=== PATIENT | male | born 1940 | race Caucasian/White ===

== ENCOUNTER 2017-04-26 11:50 | Inpatient (IN) | payer MEDICARE ==
[2017-04-26 12:37] LABS: Hematocrit 40 % (42-52); Hemoglobin 13.5 g/dl (14.0-18.0); Mean Corpuscular HGB Conc 34 g/dl (31-36); Mean Corpuscular Hemoglobin 33 pg (27-31); Mean Corpuscular Volume 96 fL (80-94); Mean Platelet Volume 8 um3 (7.4-10.4); Red Blood Count 4.14 10^6/ul (4.0-5.4); Red Cell Distribution Width 14 % (10.5-15); White Blood Count 7.5 10^3/ul (3.5-10.8)
[2017-04-26] MEDS: NS 0.9% 1000 ML* 1,000 ML IV SCH ×2 (12:48→19:47)
[2017-04-26 12:51] LABS: ALT 16 U/L (7-52); AST 20 U/L (13-39); Albumin 3.9 g/dL (3.2-5.2); Alkaline Phosphatase 72 U/L (34-104); Anion Gap 6 mmol/L (2-11); BUN/Creatinine Ratio 17.2 (8-20); Blood Urea Nitrogen 16 mg/dL (6-24); C Reactive Protein 3.68 mg/L (< 5.00); CO2 Carbon Dioxide 26 mmol/L (22-32); Calcium 8.9 mg/dL (8.6-10.3); Chloride 106 mmol/L (101-111); Creatine Kinase 109 U/L (10-223); EGFR African American 101.3 (>60); EGFR Non-African American 78.8 (>60); Globulin 2.5 g/dL (2-4); Glucose 89 mg/dL (70-100); Lipase < 10 U/L (11.0-82.0); Magnesium 2.2 mg/dL (1.9-2.7); Potassium 4.1 mmol/L (3.5-5.0); Sodium 138 mmol/L (133-145); Total Protein 6.4 g/dL (6.4-8.9)
[2017-04-26 12:52] LABS: Troponin I 0.01 ng/mL (<0.04)
--- NOTE | 2017-04-26 13:11 | RAD ---
HISTORY: Irregular EKG COMPARISONS: None VIEWS: 1: frontal portable view of the chest at 12:50 PM. The right costophrenic angle is cut off. FINDINGS: LINES AND TUBES: A left-sided pacemaker is noted CARDIOMEDIASTINAL SILHOUETTE: The cardiomediastinal silhouette is normal for portable technique. PLEURA: The left costophrenic angle is sharp. No pleural abnormalities are noted. LUNG PARENCHYMA: The lungs are clear. ABDOMEN: The upper abdomen is clear. There is no subphrenic gas. BONES AND SOFT TISSUES: The patient is status post median sternotomy. IMPRESSION: NO ACTIVE CARDIOPULMONARY DISEASE.
[2017-04-26 13:31] LABS: TSH (Thyroid Stimulating Horm) 1.43 mcIU/mL (0.34-5.60)
[2017-04-26 13:36] LABS: Urine Bilirubin Negative (Negative); Urine Glucose Negative (Negative); Urine Nitrite Negative (Negative)
[2017-04-26] MEDS ORDERED: Iohexol 350* (CONTRAST) 500 ML MDV IV ONE (14:29)
--- NOTE | 2017-04-26 14:30 | RAD ---
INDICATION: RIGHT calf and ankle pain. Positive d-dimer. COMPARISON: No relevant prior exams available on the [facility] [place]. TECHNIQUE: Wiggins scale, color Doppler, and spectral analysis of the deep veins of the RIGHT lower extremity. Vessel compression, phasicity, and augmentation assessed. REPORT: The RIGHT common femoral, great saphenous, profunda femoral, femoral, popliteal, peroneal, and posterior tibial veins are patent. Patency of the LEFT common femoral vein documented. IMPRESSION: No evidence for RIGHT lower extremity deep venous thrombosis.
--- NOTE | 2017-04-26 14:47 | RAD ---
Indication: Dizziness, positive d-dimer. Contrast: Administered 77.3 ml of Contrast -- mg/ml CTA of the chest was performed after IV contrast administration. Coronal and sagittal reconstructed images were obtained. The pulmonary arterial tree is well opacified. There are no filling defects present to suggest pulmonary embolus. There is no evidence of mediastinal or hilar adenopathy. Inferior thyroid lobes are grossly unremarkable. Coronary artery calcifications are noted. The heart demonstrates no pericardial effusion. The trachea and major bronchi appear patent. The lung hartmann demonstrate no evidence of pleural fluid, nodules or masses. No alveolar consolidation is noted. Multiple low density lesions in the liver are noted likely representing small cysts. Patient status post cholecystectomy. Right renal cyst is noted in the upper pole. The remainder of the abdominal organs are grossly unremarkable where visualized. The bony structures demonstrates a sclerotic focus in the right sixth rib likely representing a bone island. IMPRESSION: NO EVIDENCE OF PULMONARY EMBOLUS IS NOTED. NO PULMONARY LESIONS ARE NOTED. LIKELY HEPATIC CYSTS ARE PRESENT. PATIENT IS STATUS POST CHOLECYSTECTOMY.
[2017-04-26 19:33] LABS: Cholesterol 102 mg/dL; HDL Cholesterol 38.9 mg/dL; LDL Cholesterol 49 mg/dL; Triglycerides 69 mg/dL
[2017-04-26] MEDS ORDERED: Dabigatran CAP(NF) 75 MG CAP PO SCH (21:00)
--- NOTE | 2017-04-26 21:29 | ED ---
Jesus Manuel Bernal Kyle, scribed for Gianluca Pardo MD on 04/26/17 at 1207 . Complex/Multi-Sys Presentation - HPI Summary HPI Summary: This is a 77 yo male presenting with complaints of feeling lightheadedness and dizziness that began about three weeks ago. He reports that he felt rather well yesterday as he was out wine tasting yesterday without relief. He reports that when he stands up and walks around he has some difficulty catching his breath, this was more pronounced this morning. No chest pain but he does report RLE pain. No history of DVT. He is on Pradaxa currently. - History Of Current Complaint Time Seen by Provider: 04/26/17 11:58 Hx Obtained From: Patient Onset/Duration: Gradual Onset Timing: Constant Severity Currently: Moderate Severity Initially: Mild Location: Negative Character: Unable To Describe - Lightheadedness Associated Signs And Symptoms: Positive: SOB - Allergies/Home Medications Allergies/Adverse Reactions: Allergies Allergy/AdvReac Type Severity Reaction Status Date / Time No Known Allergies Allergy Verified 04/26/17 12:06 PMH/Surg Hx/FS Hx/Imm Hx Cardiovascular History: Reports: Hx Coronary Artery Disease Denies: Hx Deep Vein Thrombosis - Surgical History Surgery Procedure, Year, and Place: Pacemaker. Coronary stent x6. Infectious Disease History: Denies: Traveled Outside the [place] in Last 30 Days Review of Systems Positive: Fatigue. Negative: Fever, Chills Negative: Palpitations, Chest Pain Positive: Shortness Of Breath Neurological: Other - Lightheadedness All Other Systems Reviewed And Are Negative: Yes Physical Exam - Summary Physical Exam Summary: General: well-appearing, no pain distress Skin: warm, color reflects adequate perfusion, dry Head: normal Eyes: EOMI, JANET ENT: normal Neck: supple, nontender Respiratory: CTA, breath sounds present Cardiovascular: RRR Abdomen: soft, nontender Bowel: present Musculoskeletal: Tender in the right lower calf. Full strength throughout. Neurological: normal, sensory/motor intact, A&O x3 Psychological: affect/mood appropriate Triage Information Reviewed: Yes Vital Signs On Initial Exam: Initial Vitals Temp Pulse Resp BP Pulse Ox 97.3 F 60 15 133/76 99 04/26/17 12:02 04/26/17 12:02 04/26/17 12:02 04/26/17 12:02 04/26/17 12:02 Vital Signs Reviewed: Yes Diagnostics - Vital Signs Vital Signs Temp Pulse Resp BP Pulse Ox 04/26/17 17:30 61 129/75 97 04/26/17 17:09 60 99 04/26/17 17:06 139/75 04/26/17 16:30 60 126/78 98 04/26/17 16:00 60 131/74 98 04/26/17 15:30 59 131/75 98 04/26/17 15:00 60 132/73 98 04/26/17 14:30 60 134/67 98 04/26/17 14:27 122/69 04/26/17 14:01 73 81 04/26/17 14:00 124/72 04/26/17 13:57 63 80 04/26/17 13:30 60 107/81 100 04/26/17 13:00 59 16 119/74 98 04/26/17 12:30 60 20 110/65 96 04/26/17 12:10 99 04/26/17 12:04 59 98 04/26/17 12:02 97.3 F 60 15 133/76 99 - Laboratory Lab Results: Lab Results 04/26/17 04/26/17 04/26/17 Range/Units 12:18 12:18 12:18 WBC (3.5-10.8) 10^3/ul RBC (4.0-5.4) 10^6/ul Hgb (14.0-18.0) g/dl Hct (42-52) % MCV (80-94) fL MCH (27-31) pg MCHC (31-36) g/dl RDW (10.5-15) % Plt Count (150-450) 10^3/ul MPV (7.4-10.4) um3 Neut % (Auto) (38-83) % Lymph % (Auto) (25-47) % Griggs % (Auto) (1-9) % Eos % (Auto) (0-6) % Baso % (Auto) (0-2) % Absolute Neuts (auto) (1.5-7.7) 10^3/ul Absolute Lymphs (auto) (1.0-4.8) 10^3/ul Absolute Monos (auto) (0-0.8) 10^3/ul Absolute Eos (auto) (0-0.6) 10^3/ul Absolute Basos (auto) (0-0.2) 10^3/ul Absolute Nucleated RBC 10^3/ul Nucleated RBC % INR (Anticoag Therapy) 1.33 H (0.89-1.11) APTT 57.1 H (26.0-36.3) seconds D-Dimer, Quantitative 289 H (Less Than 230) ng/mL Sodium 138 (133-145) mmol/L Potassium 4.1 (3.5-5.0) mmol/L Chloride 106 (101-111) mmol/L Carbon Dioxide 26 (22-32) mmol/L Anion Gap 6 (2-11) mmol/L BUN 16 (6-24) mg/dL Creatinine 0.93 (0.67-1.17) mg/dL Est GFR ( Amer) 101.3 (>60) Est GFR (Non-Af Amer) 78.8 (>60) BUN/Creatinine Ratio 17.2 (8-20) Glucose 89 (70-100) mg/dL Lactic Acid (0.5-2.0) mmol/L Calcium 8.9 (8.6-10.3) mg/dL Magnesium 2.2 (1.9-2.7) mg/dL Total Bilirubin 0.90 (0.2-1.0) mg/dL AST 20 (13-39) U/L ALT 16 (7-52) U/L Alkaline Phosphatase 72 (34-104) U/L Total Creatine Kinase 109 (10-223) U/L CK-MB (CK-2) 2.4 (0.6-6.3) ng/mL Troponin I 0.01 (<0.04) ng/mL C-Reactive Protein 3.68 (< 5.00) mg/L B-Natriuretic Peptide 76 ( - 100) pg/mL Total Protein 6.4 (6.4-8.9) g/dL Albumin 3.9 (3.2-5.2) g/dL Globulin 2.5 (2-4) g/dL Albumin/Globulin Ratio 1.6 (1-3) Triglycerides 69 mg/dL Cholesterol 102 mg/dL LDL Cholesterol 49 mg/dL HDL Cholesterol 38.9 mg/dL Lipase < 10 L (11.0-82.0) U/L TSH 1.43 (0.34-5.60) mcIU/mL Urine Color Urine Appearance Urine pH (5-9) Ur Specific Milliken (1.010-1.030) Urine Protein (Negative) Urine Ketones (Negative) Urine Blood (Negative) Urine Nitrate (Negative) Urine Bilirubin (Negative) Urine Urobilinogen (Negative) Ur Leukocyte Esterase (Negative) Urine Glucose (Negative) 04/26/17 04/26/17 04/26/17 Range/Units 12:18 12:18 13:17 WBC 7.5 (3.5-10.8) 10^3/ul RBC 4.14 (4.0-5.4) 10^6/ul Hgb 13.5 L (14.0-18.0) g/dl Hct 40 L (42-52) % MCV 96 H (80-94) fL MCH 33 H (27-31) pg MCHC 34 (31-36) g/dl RDW 14 (10.5-15) % Plt Count 167 (150-450) 10^3/ul MPV 8 (7.4-10.4) um3 Neut % (Auto) 72.1 (38-83) % Lymph % (Auto) 15.3 L (25-47) % Griggs % (Auto) 10.8 H (1-9) % Eos % (Auto) 1.2 (0-6) % Baso % (Auto) 0.6 (0-2) % Absolute Neuts (auto) 5.4 (1.5-7.7) 10^3/ul Absolute Lymphs (auto) 1.1 (1.0-4.8) 10^3/ul Absolute Monos (auto) 0.8 (0-0.8) 10^3/ul Absolute Eos (auto) 0.1 (0-0.6) 10^3/ul Absolute Basos (auto) 0 (0-0.2) 10^3/ul Absolute Nucleated RBC 0 10^3/ul Nucleated RBC % 0 INR (Anticoag Therapy) (0.89-1.11) APTT (26.0-36.3) seconds D-Dimer, Quantitative (Less Than 230) ng/mL Sodium (133-145) mmol/L Potassium (3.5-5.0) mmol/L Chloride (101-111) mmol/L Carbon Dioxide (22-32) mmol/L Anion Gap (2-11) mmol/L BUN (6-24) mg/dL Creatinine (0.67-1.17) mg/dL Est GFR ( Amer) (>60) Est GFR (Non-Af Amer) (>60) BUN/Creatinine Ratio (8-20) Glucose (70-100) mg/dL Lactic Acid 1.2 (0.5-2.0) mmol/L Calcium (8.6-10.3) mg/dL Magnesium (1.9-2.7) mg/dL Total Bilirubin (0.2-1.0) mg/dL AST (13-39) U/L ALT (7-52) U/L Alkaline Phosphatase (34-104) U/L Total Creatine Kinase (10-223) U/L CK-MB (CK-2) (0.6-6.3) ng/mL Troponin I (<0.04) ng/mL C-Reactive Protein (< 5.00) mg/L B-Natriuretic Peptide ( - 100) pg/mL Total Protein (6.4-8.9) g/dL Albumin (3.2-5.2) g/dL Globulin (2-4) g/dL Albumin/Globulin Ratio (1-3) Triglycerides mg/dL Cholesterol mg/dL LDL Cholesterol mg/dL HDL Cholesterol mg/dL Lipase (11.0-82.0) U/L TSH (0.34-5.60) mcIU/mL Urine Color Yellow Urine Appearance Clear Urine pH 7.0 (5-9) Ur Specific Milliken 1.006 L (1.010-1.030) Urine Protein Negative (Negative) Urine Ketones Negative (Negative) Urine Blood Negative (Negative) Urine Nitrate Negative (Negative) Urine Bilirubin Negative (Negative) Urine Urobilinogen Negative (Negative) Ur Leukocyte Esterase Negative (Negative) Urine Glucose Negative (Negative) 04/26/17 Range/Units 15:10 WBC (3.5-10.8) 10^3/ul RBC (4.0-5.4) 10^6/ul Hgb (14.0-18.0) g/dl Hct (42-52) % MCV (80-94) fL MCH (27-31) pg MCHC (31-36) g/dl RDW (10.5-15) % Plt Count (150-450) 10^3/ul MPV (7.4-10.4) um3 Neut % (Auto) (38-83) % Lymph % (Auto) (25-47) % Griggs % (Auto) (1-9) % Eos % (Auto) (0-6) % Baso % (Auto) (0-2) % Absolute Neuts (auto) (1.5-7.7) 10^3/ul Absolute Lymphs (auto) (1.0-4.8) 10^3/ul Absolute Monos (auto) (0-0.8) 10^3/ul Absolute Eos (auto) (0-0.6) 10^3/ul Absolute Basos (auto) (0-0.2) 10^3/ul Absolute Nucleated RBC 10^3/ul Nucleated RBC % INR (Anticoag Therapy) (0.89-1.11) APTT (26.0-36.3) seconds D-Dimer, Quantitative (Less Than 230) ng/mL Sodium (133-145) mmol/L Potassium (3.5-5.0) mmol/L Chloride (101-111) mmol/L Carbon Dioxide (22-32) mmol/L Anion Gap (2-11) mmol/L BUN (6-24) mg/dL Creatinine (0.67-1.17) mg/dL Est GFR ( Amer) (>60) Est GFR (Non-Af Amer) (>60) BUN/Creatinine Ratio (8-20) Glucose (70-100) mg/dL Lactic Acid (0.5-2.0) mmol/L Calcium (8.6-10.3) mg/dL Magnesium (1.9-2.7) mg/dL Total Bilirubin (0.2-1.0) mg/dL AST (13-39) U/L ALT (7-52) U/L Alkaline Phosphatase (34-104) U/L Total Creatine Kinase (10-223) U/L CK-MB (CK-2) (0.6-6.3) ng/mL Troponin I 0.01 (<0.04) ng/mL C-Reactive Protein (< 5.00) mg/L B-Natriuretic Peptide ( - 100) pg/mL Total Protein (6.4-8.9) g/dL Albumin (3.2-5.2) g/dL Globulin (2-4) g/dL Albumin/Globulin Ratio (1-3) Triglycerides mg/dL Cholesterol mg/dL LDL Cholesterol mg/dL HDL Cholesterol mg/dL Lipase (11.0-82.0) U/L TSH (0.34-5.60) mcIU/mL Urine Color Urine Appearance Urine pH (5-9) Ur Specific Milliken (1.010-1.030) Urine Protein (Negative) Urine Ketones (Negative) Urine Blood (Negative) Urine Nitrate (Negative) Urine Bilirubin (Negative) Urine Urobilinogen (Negative) Ur Leukocyte Esterase (Negative) Urine Glucose (Negative) Result Diagrams: 04/26/17 12:18 04/26/17 12:18 Lab Statement: Any lab studies that have been ordered have been reviewed, and results considered in the medical decision making process. - Radiology CXR Xray Interpretation: No Acute Changes - Impression: No active cardiopulmonary disease. Radiology Interpretation Completed By: Radiologist - CT Chest CT Interpretation: No Acute Changes - No evidence of pulmonary embolus is noted. No pulmonary lesions are noted. Likely hepatic cysts are present. Patient is status post cholecystectomy. CT Interpretation Completed By: Radiologist - Ultrasound No standard instances Ultrasound Interpretation: No Acute Changes - No evidence of right lower extremity DVT Ultrasound Interpretation Completed By: Radiologist - EKG 1204 Cardiac Rate: NL - 60 EKG Rhythm: Sinus Rhythm ST Segment: Normal EKG Interpretation: NSR with a 1st Degree AVB (NM - .426) Complex Multi-Symp Course/Dx Course Of Treatment: PACEMAKER INTERROGATION SHOWED 12 RUNS OF NON SUSTAINED VTACK, THE LAST BEING 04/18/17. DISCUSSED RESULTS AND PACEMAKER INTERROGATION RESULTS WITH PATIENT/ AND DR TSANG, CARDIOLOGY. ADMIT PATIENT HOSPITALIST FOR STRESS TEST. NO CRITICAL CARE TIME. - Diagnoses Provider Diagnoses: Dizziness, AV block, 1st degree, V-tach - Physician Notifications Discussed Care Of Patient With: Jose Alfredo Tsang - As pacer appers to be working, recommends interrogation Discharge - Discharge Plan Condition: Stable Disposition: ADMITTED TO [facility] The documentation as recorded by the Jesus Manuel rodriguez Kyle accurately reflects the service I personally performed and the decisions made by , Gianluca Pardo MD.
--- NOTE | 2017-04-26 23:13 | HP ---
CC: Dr. Vaca * ADMISSION HISTORY AND PHYSICAL: DATE OF ADMISSION: PRIMARY CARE DOCTOR: Dr. Vaca at [facility]. MY ATTENDING WHILE IN THE HOSPITAL: Bonita Mallory DO * (DICTATED BY ALEKSANDRA RODRIGUEZ) CHIEF COMPLAINT: Dizziness. HISTORY OF PRESENT ILLNESS: Mr. Malone is a 77-year-old male with past medical history significant for coronary artery disease with an MT, bypass in 2000, 2 ablations for AFib and atrial flutter, and a pacemaker placement in October of this year for irregular heart rate, who presents today with dizziness for 3 weeks, most prominently this morning. The patient states that yesterday he was up from [place] for vacation and to sell his boat. He went on a wine tour and then went dancing in [facility] and while they were out, the patient had a mechanical fall and hit his elbow and back, but denies hitting his head or loss of consciousness. The patient then danced for the rest of the night and took a Viagra that night and then woke up this morning and took another Viagra even though he was dizzy and his dizziness persisted throughout the day. He then went to the [facility] where they were concerned about EKG for a prolonged MA interval. The patient was then sent to the emergency department and his pacemaker interrogated, which showed numerous episodes of nonsustained V-tach, usually around 3 seconds, but one episode of 12 seconds in March. Cardiology was consulted and it was suggested this might due to ischemia due to the patient 's significant risk factors, so the salesforce specialist recommended he be kept overnight for a stress test in the morning. The patient denies any palpitations , chest pain, or shortness of breath. The patient has chronic swelling in his legs, but denies any increase in that swelling. The patient is very active. Denies any recent weight gain. The patient's weight has been 205 pounds for many years now. The patient does state he has increasing fatigue over the past month or so, but states that he believes it is due to stress and a decrease in sleep. The patient denies any known snoring. The patient denies waking up in the middle of the night. The patient denies orthopnea and PND. PAST MEDICAL HISTORY: Coronary artery disease, myocardial infarction in 2000, AFib, and atrial flutter, now resolved after an ablation. PAST SURGICAL HISTORY: Cardiac bypass in 2000, cardiac catheterizations with 6 stents, 2 ablations for AFib and atrial flutter, pacemaker placement in October, and a cholecystectomy. MEDICATIONS: 1. Pradaxa 75 mg b.i.d. 2. Aspirin 81 mg daily. 3. Simvastatin 20 mg daily. ALLERGIES: No known drug allergies. FAMILY HISTORY: The patient denies any significant family history. SOCIAL HISTORY: The patient denies ever smoking. The patient drinks a couple of glass of wine a night. The patient denies any drug use. 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 The patient is , has 5 kids and 13 grandchildren and lives in [place]. REVIEW OF SYSTEMS: The patient denies fevers, chills, nausea, vomiting, anorexia, cough, shortness of breath, hemoptysis, diarrhea, abdominal pain, constipation, change in urine, dysuria, frequency, hematuria. The patient denies weakness or sensory loss, changes in vision, new rashes. PHYSICAL EXAMINATION GENERAL: The patient is a 77-year-old male who appears stated age, sitting comfortably in the emergency department stretcher, in no acute distress. VITAL SIGNS: Blood pressure 136/79, heart rate 60, respiratory rate 20, oxygen saturation 98% on room air, temperature 97.3. HEENT: Head normocephalic, atraumatic. No conjunctival injection. Sclerae anicteric. Mucous membranes moist. Pharynx nonerythematous. NECK: No lymphadenopathy. Supple. No carotid bruit auscultated. RESPIRATORY: Clear to auscultation bilaterally. No wheezes, rales, or rhonchi. Good air exchange bilaterally. CARDIAC: Regular rate and rhythm. No clicks, murmurs, gallops, or rubs. PMI nondisplaced. Radial, posterior tibial, and dorsalis pedis pulses 2+ bilaterally. ABDOMEN: Soft, nontender, nondistended. Bowel sounds present, normoactive in all 4 quadrants. No hepatosplenomegaly. GENITOURINARY: No suprapubic or CVA tenderness. SKIN: The patient has a bruise on his back with underlying mass present with hematoma and elbow. NEUROLOGIC: Cranial nerves II through XII intact. Alert and oriented x3. DIAGNOSTIC STUDIES/LAB DATA: White blood cell count 7.5, hemoglobin 13.5, hematocrit 40, MCV 96, MCH 33, platelet count 167. INR 1.33, aPTT 57.1. D- dimer 289. Sodium 138, potassium 4.1, chloride 106, carbon dioxide 26, anion gap 6, BUN 16, creatinine 0.93, glucose 89, magnesium 2.2. AST 20, ALT 16. Troponin I 0.01 x2. CRP 3.68, BNP 76. Lipid panel is pending. TSH 1.43. Urine benign. Venous Doppler study of the lower leg showed no evidence of right lower extremity deep vein thrombosis. Chest CTA read as no evidence of pulmonary embolus is noted. No pulmonary lesions are noted. Hepatic cysts are present. The patient is status post cholecystectomy. Chest x-ray shows no active cardiopulmonary disease. EKG shows AV block type 1 with significantly prolonged MA, normal sinus rhythm. No ST changes. Normal axis. No other abnormalities. IMPRESSION: The patient is a 77-year-old male with a past medical history significant for bypass, 2 ablations, myocardial infarction, and history of atrial fibrillation and flutter, who presents today with dizziness, possibly related to Viagra use and alcohol consumption, but may be related to ventricular tachycardia, nonsustained, found on pacemaker interrogation. We will keep overnight for a stress test to assess for his cardiac ischemic leading to these events. 1. Nonsustained ventricular tachycardia. The patient has a history of nonsustained ventricular tachycardia found on his pacemaker during interrogation. The patient is likely asymptomatic as he has no recollection of these episodes. The patient has been dizzy for 3 weeks and has an increase in fatigue. The patient has a significant past medical history for his cardiac risk factors and history of myocardial infarction. The patient will have a stress test in the morning to see if this can provoke the ventricular tachycardia and the pacemaker settings will be adjusted or new pacemaker will be inserted as indicated by this test. The patient will be n.p.o. after midnight. Fluids started to maintain hydration overnight. 2. History of coronary artery disease. The patient denies any history of hyperlipidemia, but a lipid panel was ordered at this time. The patient takes aspirin and simvastatin daily for secondary prevention. We will continue these while in the hospital. 3. History of atrial fibrillation/atrial flutter. The patient is normal sinus rhythm, post ablation. The patient is anticoagulated with Pradaxa. The patient is on no rate control agents and has a heart rate of 60 at this time. 4. DVT prophylaxis. The patient is on Pradaxa. The patient is up ad jose. 5. FEN. The patient is on a heart healthy, no caffeine diet tonight and will become n.p.o. at midnight. The patient is on fluids at 100 mL an hour at this time. 6. Code status. The patient is a full code. The patient's surrogate decision maker is his , Filomena Malone. 7. Disposition. The patient is admitted to observation to the telemetry unit. TIME SPENT: Approximately 60 minutes were spent on this admission, 30 of which was spent [id number] with the patient obtaining history and physical. ALEKSANDRA RODRIGUEZ [id number]/CPS #: [id number] JAMIL
[2017-04-27] MEDS ORDERED: NS 0.9% 1000 ML* 1,000 ML IV SCH
[2017-04-27] MEDS: NS 0.9% 1000 ML* 1,000 ML IV SCH ×2 (03:37→14:11)
[2017-04-27 05:40] LABS: Hematocrit 38 % (42-52); Hemoglobin 12.9 g/dl (14.0-18.0); Mean Corpuscular HGB Conc 34 g/dl (31-36); Mean Corpuscular Hemoglobin 33 pg (27-31); Mean Corpuscular Volume 96 fL (80-94); Mean Platelet Volume 8 um3 (7.4-10.4); Red Blood Count 3.94 10^6/ul (4.0-5.4); Red Cell Distribution Width 14 % (10.5-15); White Blood Count 7.3 10^3/ul (3.5-10.8)
[2017-04-27 05:51] LABS: BUN/Creatinine Ratio 12.5 (8-20); Calcium 8.3 mg/dL (8.6-10.3)
[2017-04-27] MEDS ORDERED: CMC:Dabigatran CAP(NF) 75 MG CAP PO SCH (09:00)
[2017-04-27] MEDS: Aspirin EC Low Dose* 81 MG TAB.EC PO SCH (09:42)
[2017-04-27] MEDS: Atorvastatin* 10 MG TAB PO SCH (09:43)
[2017-04-27] MEDS: Potassium Chloride LIQUID* 20 MEQ PACKET PO SCH (09:52)
--- NOTE | 2017-04-27 10:41 | ECHO ---
Patient: BEVERLY MCGUIRE [facility] Rec#: [id number] : 1940 Date: 04/27/2017 Age: 77y Height: 188 cm / 74.0 in Weight: 91.6 kg / 201.9 lbs Sex: M BSA: 2.18 Room#: [facility] Admit Date#: 04/26/2017 Type: Inpatient Referring: Jose Alfredo Tsang MD Reading: Jose Alfredo Tsang MD Supervisor Patching: Enriqueta Minor RN RDCS Transthoracic Echocardiogram Indication: CAD, NSVT BP: 122/64 HR: 62 Rhythm: NSR with PVCs Findings History: CAD, [place], CABG, PCI, A.fib/A.flutter S/P ablations, pacemaker, recent episodes of non-sustained V. tach Technical Comments: The study quality is fair. Completed at 1030. Left Ventricle: The left ventricular chamber size is normal. Septal wall hypertrophy is observed. There is increased basal septal hypertrophy noted without evidence of an increased gradient across the left ventricular outflow tract. Global left ventricular wall motion and contractility are within normal limits. Left ventricular systolic function is at the lower limits of normal. The estimated ejection fraction is 50-55%. Ventricular septal wall motion has a post-operative appearance. There is no consistent Doppler evidence of clinically significant diastolic dysfunction. Left Atrium: The left atrium is mildly dilated. Right Ventricle: The right ventricle is mildly dilated. The right ventricular global systolic function is low normal. A pacemaker wire is visualized in the right ventricle. Right Atrium: The right atrium is mild to moderately dilated. A pacemaker wire is visualized in the right atrium. Aortic Valve: The aortic valve is trileaflet. The aortic valve leaflets are mildly thickened. There is mild thickening of the non coronary cusp. There is aortic annular calcification. There is a trace of aortic regurgitation. There is no evidence of aortic stenosis. Mitral Valve: Mild mitral annular calcification present. The mitral valve leaflets are mildly thickened. There is mild to moderate mitral regurgitation. There is no evidence of mitral stenosis. Tricuspid Valve: The tricuspid valve leaflets are normal. There is mild tricuspid regurgitation. No pulmonary hypertension is noted. There is no tricuspid stenosis. Pulmonic Valve: The pulmonic valve structure is not well visualized. There is a trace pulmonic regurgitation. There is no pulmonic stenosis. Pericardium: There is no significant pericardial effusion. A pericardial fat pad is visualized. Aorta: There is mild dilatation of the ascending aorta. The aortic arch is not well visualized. There is mild dilatation of the aortic root. Pulmonary Artery: The main pulmonary artery is not well visualized. Venous: The inferior vena cava is dilated. There is a greater than 50% respiratory change in the inferior vena cava dimension. Summary: There was not any prior study for comparison. Conclusions Left ventricular systolic function is at the lower limits of normal. The estimated ejection fraction is 50-55%. The left atrium is mildly dilated. The right ventricle is mildly dilated. The right ventricular global systolic function is low normal. The aortic valve leaflets are mildly thickened. There is a trace of aortic regurgitation. There is mild to moderate mitral regurgitation. There is mild tricuspid regurgitation. Measurements Name Value Normal Range RVDdMajor (2D) 4.8 cm (2.2 - 4.4) RAd ISD 4CH 5.1 cm (3.4 - 4.9) RA (A4C)W 4.5 cm (2.9 - 4.6) IVSd (2D) 1.1 cm (0.6 - 1) LVPWd (2D) 1 cm (0.6 - 1) LVIDd (2D) 4.3 cm (3.6 - 5.4) LVIDs (2D) 3.4 cm - LV FS (2D) 23 % (25 - 45) Aortic Annulus 2.3 cm (1.4 - 2.6) Ao root diameter (2D) 3.6 cm (2.1 - 3.5) Ascending Ao 3.7 cm (2.1 - 3.4) LA dimension (AP) 2D 3.7 cm (2.3 - 3.8) LAd ISD 4CH 5.1 cm (2.9 - 5.3) LA ISD 4CH W 4.9 cm (2.5 - 4.5) Name Value Normal Range LA ESV SP 4CH (A/L) 92.6 ml - LA ESV SP 2CH (A/L) 29.6 ml - LA ESV BP (A/L) 56.1 ml - LA ESV BP (A/L) index 25.7 ml/m2 - LA ESV SP 4CH (MOD) 84.7 ml - LA ESV SP 2CH (MOD) 28.9 ml - Name Value Normal Range MV E-wave Vmax 1 m/sec - MV deceleration time 176 msec - MV A-wave Vmax 0.9 m/sec - MV E:A ratio 1.2 ratio - LV septal e' Vmax 0.06 m/sec - LV lateral e' Vmax 0.11 m/sec - LV E:e' septal ratio 16.7 ratio - LV E:e' lateral ratio 9.1 ratio - Name Value Normal Range AV Vmax 1.4 m/sec - AV VTI 34.5 cm - AV peak gradient 7.84 mmHg - AV mean gradient 5.8 mmHg - LVOT diameter 2.1 cm - LVOT Vmax 1 m/sec - LVOT VTI 23.3 cm - LVOT peak gradient 4.1 mmHg - LVOT mean gradient 2.5 mmHg - DOI (VTI) 0.68 ratio - DOI (Vmax) 0.71 ratio - SV LVOT 80.7 ml - CO LVOT 5 l/min - Cardiac index 2.3 l/min/m2 - ZULLY (continuity Vmax) 2.5 cm2 - ZULLY (continuity VTI) 2.4 cm2 - Name Value Normal Range TR Vmax 2.4 m/sec - TR peak gradient 23 mmHg - RAP 8 mmHg - RVSP 31 mmHg - IVC diameter 2.5 cm - Name Value Normal Range PV Vmax 0.7 m/sec -
--- NOTE | 2017-04-27 12:44 | RAD ---
Edited for charges. INDICATION: INDICATION: Nonsustained ventricular tachycardia, history of prior myocardial infarction and coronary artery bypass surgery. COMPARISON: There are no prior studies available for comparison. Technique: A single day myocardial perfusion stress study was performed. Initially a resting study was performed. The patient was given an intravenous injection of 10.4 mCi of technetium 99m tetrofosmin and and the heart was imaged in multiple projections. The patient returned later in the day and under the direction of Dr. Tsang, the patient was exercised to a peak heart rate of 194 beats per minute which was 104% of the maximum predicted heart rate. Subsequently the patient was given intravenous injection of 25.2 mCi of technetium 99m tetrofosmin and the heart was imaged in multiple projections. Images were reconstructed in the axial, sagittal and coronal planes and in a 3- D format. FINDINGS: There appears to be normal wall motion and myocardial thickening. The left ventricular ejection fraction was calculated to be 72%. Review of the images demonstrates a focal area of decreased activity present in the anterolateral lateral wall on the post exercise images which appears smaller on the resting set of images suggestive of an infarct with moderate young-infarct ischemia. No other focal abnormalities are seen. The transient ischemic dilatation ratio is elevated at 1.18. The results of this exam were called to the referring clinician. IMPRESSION: 1. FINDINGS MOST CONSISTENT WITH A INFARCT WITH MODERATE YOUNG-INFARCT ISCHEMIA IN THE ANTEROLATERAL WALL. 2. ELEVATION OF THE TRANSIENT ISCHEMIC DILATATION RATIO SUGGESTIVE OF MULTI VESSEL CORONARY ARTERY DISEASE. ASSESSMENT: Intermediate risk. Based on imaging criteria from ACC/AHA 2002 Guideline Update for the Management of Patients With Chronic Stable Angina Table 23. Noninvasive Risk Stratification. MTDD
[2017-04-27] MEDS: Metoprolol Succinate XL TAB* 25 MG PO SCH ×2 (14:08→20:33)
--- NOTE | 2017-04-27 15:28 | PN ---
Subjective Date of Service: 04/27/17 Interval History: No dizzy spells since admission. No new c/o. Objective Active Medications: Aspirin (Aspirin Ec Low Dose*) 81 mg PO DAILY [facility] Last Admin: 04/27/17 09:42 Dose: 81 mg Atorvastatin Calcium (Lipitor*) 10 mg PO DAILY [facility] Last Admin: 04/27/17 09:43 Dose: 10 mg Enoxaparin Sodium (Lovenox(*)) 90 mg SUBCUT Q12H [facility] Sodium Chloride (Ns 0.9% 1000 Ml*) 1,000 mls @ 150 mls/hr IV PER RATE [facility] Last Admin: 04/27/17 14:11 Dose: 150 mls/hr Metoprolol Succinate (Toprol Xl Tab*) 25 mg PO BID [facility] Last Admin: 04/27/17 14:08 Dose: 25 mg Potassium Chloride (Klor-Con Liquid*) 40 meq PO DAILY [facility] Last Admin: 04/27/17 09:52 Dose: 40 meq Oxygen Devices in Use Now: None Appearance: Alert, partly up in bed. In good spirits. Looks comfortable. Eyes: No Scleral Icterus Respiratory: Symmetrical Chest Expansion and Respiratory Effort, Clear to Auscultation, Clear to Percussion, Clear to Palpation Cardiovascular: NL Sounds; No Murmurs; No JVD, RRR, No Edema Extremities: No Edema, No Clubbing, Cyanosis Skin: No Rash or Ulcers, No Nodules or Sclerosis, - Neurological: Alert and Oriented x 3, NL Sensation Result Diagrams: 04/27/17 05:25 04/27/17 05:25 Additional Lab and Data: Lab Results 04/26/17 04/26/17 04/26/17 Range/Units 12:18 12:18 12:18 WBC (3.5-10.8) 10^3/ul RBC (4.0-5.4) 10^6/ul Hgb (14.0-18.0) g/dl Hct (42-52) % MCV (80-94) fL MCH (27-31) pg MCHC (31-36) g/dl RDW (10.5-15) % Plt Count (150-450) 10^3/ul MPV (7.4-10.4) um3 Neut % (Auto) (38-83) % Lymph % (Auto) (25-47) % [place] % (Auto) (1-9) % Eos % (Auto) (0-6) % Baso % (Auto) (0-2) % Absolute Neuts (auto) (1.5-7.7) 10^3/ul Absolute Lymphs (auto) (1.0-4.8) 10^3/ul Absolute Monos (auto) (0-0.8) 10^3/ul Absolute Eos (auto) (0-0.6) 10^3/ul Absolute Basos (auto) (0-0.2) 10^3/ul Absolute Nucleated RBC 10^3/ul Nucleated RBC % INR (Anticoag Therapy) 1.33 H (0.89-1.11) APTT 57.1 H (26.0-36.3) seconds D-Dimer, Quantitative 289 H (Less Than 230) ng/mL Sodium 138 (133-145) mmol/L Potassium 4.1 (3.5-5.0) mmol/L Chloride 106 (101-111) mmol/L Carbon Dioxide 26 (22-32) mmol/L Anion Gap 6 (2-11) mmol/L BUN 16 (6-24) mg/dL Creatinine 0.93 (0.67-1.17) mg/dL Est GFR ( Amer) 101.3 (>60) Est GFR (Non-Af Amer) 78.8 (>60) BUN/Creatinine Ratio 17.2 (8-20) Glucose 89 (70-100) mg/dL Lactic Acid (0.5-2.0) mmol/L Calcium 8.9 (8.6-10.3) mg/dL Magnesium 2.2 (1.9-2.7) mg/dL Total Bilirubin 0.90 (0.2-1.0) mg/dL AST 20 (13-39) U/L ALT 16 (7-52) U/L Alkaline Phosphatase 72 (34-104) U/L Total Creatine Kinase 109 (10-223) U/L CK-MB (CK-2) 2.4 (0.6-6.3) ng/mL Troponin I 0.01 (<0.04) ng/mL C-Reactive Protein 3.68 (< 5.00) mg/L B-Natriuretic Peptide 76 ( - 100) pg/mL Total Protein 6.4 (6.4-8.9) g/dL Albumin 3.9 (3.2-5.2) g/dL Globulin 2.5 (2-4) g/dL Albumin/Globulin Ratio 1.6 (1-3) Triglycerides 69 mg/dL Cholesterol 102 mg/dL LDL Cholesterol 49 mg/dL HDL Cholesterol 38.9 mg/dL Lipase < 10 L (11.0-82.0) U/L TSH 1.43 (0.34-5.60) mcIU/mL Urine Color Urine Appearance Urine pH (5-9) Ur Specific [place] (1.010-1.030) Urine Protein (Negative) Urine Ketones (Negative) Urine Blood (Negative) Urine Nitrate (Negative) Urine Bilirubin (Negative) Urine Urobilinogen (Negative) Ur Leukocyte Esterase (Negative) Urine Glucose (Negative) 04/26/17 04/26/17 04/26/17 Range/Units 12:18 12:18 13:17 WBC 7.5 (3.5-10.8) 10^3/ul RBC 4.14 (4.0-5.4) 10^6/ul Hgb 13.5 L (14.0-18.0) g/dl Hct 40 L (42-52) % MCV 96 H (80-94) fL MCH 33 H (27-31) pg MCHC 34 (31-36) g/dl RDW 14 (10.5-15) % Plt Count 167 (150-450) 10^3/ul MPV 8 (7.4-10.4) um3 Neut % (Auto) 72.1 (38-83) % Lymph % (Auto) 15.3 L (25-47) % [place] % (Auto) 10.8 H (1-9) % Eos % (Auto) 1.2 (0-6) % Baso % (Auto) 0.6 (0-2) % Absolute Neuts (auto) 5.4 (1.5-7.7) 10^3/ul Absolute Lymphs (auto) 1.1 (1.0-4.8) 10^3/ul Absolute Monos (auto) 0.8 (0-0.8) 10^3/ul Absolute Eos (auto) 0.1 (0-0.6) 10^3/ul Absolute Basos (auto) 0 (0-0.2) 10^3/ul Absolute Nucleated RBC 0 10^3/ul Nucleated RBC % 0 INR (Anticoag Therapy) (0.89-1.11) APTT (26.0-36.3) seconds D-Dimer, Quantitative (Less Than 230) ng/mL Sodium (133-145) mmol/L Potassium (3.5-5.0) mmol/L Chloride (101-111) mmol/L Carbon Dioxide (22-32) mmol/L Anion Gap (2-11) mmol/L BUN (6-24) mg/dL Creatinine (0.67-1.17) mg/dL Est GFR ( Amer) (>60) Est GFR (Non-Af Amer) (>60) BUN/Creatinine Ratio (8-20) Glucose (70-100) mg/dL Lactic Acid 1.2 (0.5-2.0) mmol/L Calcium (8.6-10.3) mg/dL Magnesium (1.9-2.7) mg/dL Total Bilirubin (0.2-1.0) mg/dL AST (13-39) U/L ALT (7-52) U/L Alkaline Phosphatase (34-104) U/L Total Creatine Kinase (10-223) U/L CK-MB (CK-2) (0.6-6.3) ng/mL Troponin I (<0.04) ng/mL C-Reactive Protein (< 5.00) mg/L B-Natriuretic Peptide ( - 100) pg/mL Total Protein (6.4-8.9) g/dL Albumin (3.2-5.2) g/dL Globulin (2-4) g/dL Albumin/Globulin Ratio (1-3) Triglycerides mg/dL Cholesterol mg/dL LDL Cholesterol mg/dL HDL Cholesterol mg/dL Lipase (11.0-82.0) U/L TSH (0.34-5.60) mcIU/mL Urine Color Yellow Urine Appearance Clear Urine pH 7.0 (5-9) Ur Specific [place] 1.006 L (1.010-1.030) Urine Protein Negative (Negative) Urine Ketones Negative (Negative) Urine Blood Negative (Negative) Urine Nitrate Negative (Negative) Urine Bilirubin Negative (Negative) Urine Urobilinogen Negative (Negative) Ur Leukocyte Esterase Negative (Negative) Urine Glucose Negative (Negative) 04/26/17 Range/Units 15:10 WBC (3.5-10.8) 10^3/ul RBC (4.0-5.4) 10^6/ul Hgb (14.0-18.0) g/dl Hct (42-52) % MCV (80-94) fL MCH (27-31) pg MCHC (31-36) g/dl RDW (10.5-15) % Plt Count (150-450) 10^3/ul MPV (7.4-10.4) um3 Neut % (Auto) (38-83) % Lymph % (Auto) (25-47) % [place] % (Auto) (1-9) % Eos % (Auto) (0-6) % Baso % (Auto) (0-2) % Absolute Neuts (auto) (1.5-7.7) 10^3/ul Absolute Lymphs (auto) (1.0-4.8) 10^3/ul Absolute Monos (auto) (0-0.8) 10^3/ul Absolute Eos (auto) (0-0.6) 10^3/ul Absolute Basos (auto) (0-0.2) 10^3/ul Absolute Nucleated RBC 10^3/ul Nucleated RBC % INR (Anticoag Therapy) (0.89-1.11) APTT (26.0-36.3) seconds D-Dimer, Quantitative (Less Than 230) ng/mL Sodium (133-145) mmol/L Potassium (3.5-5.0) mmol/L Chloride (101-111) mmol/L Carbon Dioxide (22-32) mmol/L Anion Gap (2-11) mmol/L BUN (6-24) mg/dL Creatinine (0.67-1.17) mg/dL Est GFR ( Amer) (>60) Est GFR (Non-Af Amer) (>60) BUN/Creatinine Ratio (8-20) Glucose (70-100) mg/dL Lactic Acid (0.5-2.0) mmol/L Calcium (8.6-10.3) mg/dL Magnesium (1.9-2.7) mg/dL Total Bilirubin (0.2-1.0) mg/dL AST (13-39) U/L ALT (7-52) U/L Alkaline Phosphatase (34-104) U/L Total Creatine Kinase (10-223) U/L CK-MB (CK-2) (0.6-6.3) ng/mL Troponin I 0.01 (<0.04) ng/mL C-Reactive Protein (< 5.00) mg/L B-Natriuretic Peptide ( - 100) pg/mL Total Protein (6.4-8.9) g/dL Albumin (3.2-5.2) g/dL Globulin (2-4) g/dL Albumin/Globulin Ratio (1-3) Triglycerides mg/dL Cholesterol mg/dL LDL Cholesterol mg/dL HDL Cholesterol mg/dL Lipase (11.0-82.0) U/L TSH (0.34-5.60) mcIU/mL Urine Color Urine Appearance Urine pH (5-9) Ur Specific [place] (1.010-1.030) Urine Protein (Negative) Urine Ketones (Negative) Urine Blood (Negative) Urine Nitrate (Negative) Urine Bilirubin (Negative) Urine Urobilinogen (Negative) Ur Leukocyte Esterase (Negative) Urine Glucose (Negative) Assess/Plan/Problems-Billing Assessment: - Patient Problems (1) CAD (coronary artery disease) Current Visit: Yes Status: Acute Code(s): I25.10 - ATHSCL HEART DISEASE OF [place] CORONARY ARTERY W/O ANG PCTRS SNOMED Code(s): 46765482 Comment: V-tach noted on pacer interrogation, many arrhythmias during stress test. Cardiac cath planned for 04/30. Continue ASA, statin, BB, KCL. (2) Atrial fibrillation Current Visit: Yes Status: Acute Code(s): I48.91 - UNSPECIFIED ATRIAL FIBRILLATION SNOMED Code(s): 78638933 Comment: Bridge with enoxaparin. Last dose dabigatran 04/27 AM.
--- NOTE | 2017-04-27 16:04 | CONS ---
CC: Dr. Vaca at [facility]. CARDIOLOGY EVALUATION: DATE OF CONSULT: 04/27/17 CONSULTING PHYSICIAN: ALEKSANDRA Schulte. REASON FOR ADMISSION: Lightheadedness. Consultation for arrhythmias, nonsustained VT. HISTORY OF PRESENT ILLNESS: This is a very pleasant 77-year-old gentleman with longstanding history of coronary disease and paroxysmal atrial arrhythmias, status post ablation x2 as well as hyperlipidemia. He said he spends castellanos in the [place] and rodriguez in [place]. He said that when he is up here, he lives on his boat and has trouble sleeping. He said that the bed is too short for him and he had noticed that since he has been on the boat the last few weeks , he has been momentarily lightheaded when he gets up in the morning, no vertigo. He says after he gets up and moves around it seems to to go away. He said one day he had a very active day and did some wine tasting with 3 to 4 glasses of wine during the day and then had a beer in the evening. During the day, he had also gone hiking at [place] and had gone dancing that night. He took a Viagra, but did not have much effect that night, woke up in the morning and took another Viagra at about 5 a.m., he said it seemed to have moderate effect and then at about 6:30, he noticed that he was more lightheaded than he had been. Because of symptoms, he went to the [facility]. According to the patient, systolic blood pressures in 120s, but was noted to have a prolonged first-degree AV block on his EKG. Because of those symptoms and his EKG findings, he was sent to the emergency room where he had an extensive workup , which included a pacemaker interrogation, which revealed normal pacemaker function; however, he had 11 episodes of nonsustained VT, most of which were secondary to and looks like the most recent of which was on 04/18/17 and lasted for a second. He also has had multiple episodes of mode switching and these episodes have been less than 30 seconds. Based on my discussion with the pacemaker rep who interrogated the pacemaker, the patient was in the AAI mode with MVP with paced AV of 180 and sense of 150 milliseconds. He had adequate function and the appearance of first-degree AV block was probably appropriate based on the programing. Because of his history of coronary disease and nonsustained VT, he was admitted and has had negative troponins. Of note, he has also had a chest CTA because of a borderline D-dimer, which showed no evidence of pulmonary embolism. Hepatic cyst were present, may be status post cholecystectomy. He denies chest pain or palpitations. He denies syncope. He has had no orthopnea. He does have some mild tenderness in his ankles and chronic edema and varicose veins, which were longstanding. He denies change in his exercise capacity, actually he walks a mile and mile and half each day with his . He denies caffeine use. He now drinks decaffeinated coffee and he has 1 to 2 glasses of wine a day. He said he did dance yesterday and hiked at the park and felt well doing those things and his dizziness is actually is better when he gets up and moves around. He says that he had taken Viagra one at time in the past with minimal effect, but he has never taken 2 at a time. The patient had some mild lightheadedness when he first got up this morning, but it resolved with getting up and walking to the bathroom. PAST MEDICAL HISTORY: Includes coronary artery disease with myocardial infarction 2000 requiring coronary bypass grafting x5. He also had a stent later that year and says he has had 6 stents, the most recent of which was 2 years ago when he had 4 stents placed at [facility]. He also underwent ablation for atrial fibrillation in 2004 and ablation of atrial flutter in 2005 and says he has been free of symptoms since then. He had a pacemaker placed in October. He has history of elevated cholesterol and positive family history. Denies diabetes, renal insufficiency, stroke or mini stroke. He has a longstanding history of erectile dysfunction and he has had multiple treatments including medications and implants and other treatments. ALLERGIES: He has no known allergies. PAST SURGICAL HISTORY: Includes bypass in 2000; 2 ablations, one for AFib and one for A-flutter, pacemaker placed in October of 2016; and cholecystectomy. He also had right knee surgery and right femur fracture requiring surgery. FAMILY HISTORY: Includes mother had a AR at 44 and at 83. She had 3 siblings who of AR in their 40s. He has a sister with a stent at age 72 and a brother and sister who are alive and well. 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 He is and he has 4 children. REVIEW OF SYSTEMS: Times 10 was negative except as above. PHYSICAL EXAM: He is a well-developed, well-nourished gentleman, in no apparent distress. Weight 202 pounds, pulse of 59, blood pressure 122/64. Afebrile 98.3, O2 sat 99%. No significant JVD. Carotids 2+ without bruits. No cervical adenopathy. No thyromegaly. Extraocular muscles are intact. Sclera anicteric. Cardiac Exam: S1, S2. No clear murmurs, gallops, or rubs. Pacemaker site dry and intact. Chest was clear. No CVAT. Abdomen: Bowel sounds present and nontender. Femoral pulses are intact without bruits. Distal pulses intact. No edema. Motor strength 5/5 bilaterally. Deep tendon reflexes 2/4. Alert and oriented x3. DIAGNOSTIC STUDIES/LAB DATA: Include a WBC of 7.3, hemoglobin of 12.9, hematocrit of 38, platelet count 153. Sodium 138, potassium of 4.0, albumin 11 , creatinine 0.88, calcium is 8.3, troponin 0.01, 0.01, and 0.01. Cholesterol 102, D-dimer mildly elevated 289. EKG from yesterday revealed atrial pacing with a prolonged first degree AV block. Counter-clockwise rotation. No acute changes. EKG from today revealed poor baseline, but minor nonspecific lateral T-wave changes, which could be related to the baseline, cannot exclude ST depressions. On chest x-ray, no active cardiopulmonary disease. IMPRESSION AND PLAN: My impression is that Mr. Malone has history of coronary disease, paroxysmal atrial arrhythmias and lightheadedness of unclear etiology in the setting of alcohol use, activity, perhaps mild dehydration, as well as Viagra use. He also has a prolonged first-degree AV block on his pacemaker. It is unclear that he has appropriate chronotropic reserve. He also had nonsustained VT noted on his pacemaker. It is unclear if this is new issue or not; however, given his risk factors, progression of his coronary disease, unexplained symptoms, I do suggest followin. I suggest an echo to assess LV function. 2. I suggest stress nuclear to evaluate for ischemia. 3. We will consider reprograming his pacemaker to optimize AV delay and perhaps rate response mode. 4. He understands the potential dangers of taking Viagra in terms lowering his blood pressure and especially taking excessive amounts of Viagra in close proximity. We would consider supplementing his potassium. He has mild anemia, on Pradaxa, suggest followup with his primary care doctor once he returns to [place]. We will try to increase his potassium intake to make the likelihood of arrhythmia less likely. He is treating his arrhythmias with beta blockers, it is problematic given his low normal blood pressures and lightheadedness. We will obtain orthostatic. We will consider hydration with IV fluids. Further recommendations depend on his clinical course. [id number]/[facility] #: [id number] 04.29.17 6;38 AM ADDENDUM: update, patient seen 04/27/17but old records were not available. Below is a summary of some of the records which subsequently became availabel. 1. He had a pacemaker implanted at [facility] between 05/20 and 05/24. At that time, he had a long history of first-degree AV block and episodes of Mobitz I second-degree AV block. Previously he had a Holter that revealed Mobitz type II second-degree AV block. It was thought that some of his symptoms were possibly related to the second-degree AV block, with lightheadedness, and a pacemaker was implanted. 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 He had a Medtronic [id number] generator, which is an Advisa, and Medtronic 5076 58 cm RV lead, and Medtronic 5076 52 mm RA lead. In addition, he had an echocardiogram performed on 05/22/16, which revealed normal LV function, EF of 55% to 60% with mild LVH, trivial AI, mild MR , PA pressure was 30. 2. He also had a cath report from 10/15/13, during which he had percutaneous intervention for a 90% stenosis in the mid right posterior descending, he had a 2.25 x 15 Xience Xpedition stent placed. His coronary arteries revealed a right dominant circulation. Left main had a mild 50% lesion. The LAD had a distal 90% lesion. The LAD had a mid 70% stenosis. The first diagonal had a 100% ostial stenosis. The left circumflex had a proximal 95% lesion. The OM1 had 100% stenosis. The right coronary mid lesion of 100%. The right posterior descending mid vessel lesion was 90% stenosis, that was the culprit lesion that received intervention. The coronary grafts include a OLIVA to the proximal first diagonal , patent. Saphenous vein graft to the proximal right posterior descending from the aorta was present. Saphenous vein graft to the mid OM1 from the aorta was present. Sequential saphenous vein graft to the distal left circumflex, continuing from the graft to the first OM branch was present. Sequential OLIVA graft to the mid LAD, continuing from the graft to the first diagonal present. EF was estimated at 55%, by visual assessment. [id number]/[facility] #: [id number] JAMIL
[2017-04-28] MEDS: Atorvastatin* 10 MG TAB PO SCH (08:25)
[2017-04-28] MEDS: Aspirin EC Low Dose* 81 MG TAB.EC PO SCH (08:25)
[2017-04-28] MEDS: Potassium Chloride LIQUID* 20 MEQ PACKET PO SCH (08:26)
[2017-04-28] MEDS: Enoxaparin(*) 100 MG/ML SYR SUBCUT SCH ×2 (08:32→20:33)
[2017-04-28] MEDS ORDERED: Metoprolol Succinate XL TAB* 25 MG PO SCH (09:00)
[2017-04-28] MEDS ORDERED: Metoprolol Succinate XL TAB* 25 MG PO ONE (12:50)
--- NOTE | 2017-04-28 12:54 | PN ---
Subjective Date of Service: 04/28/17 Interval History: He states he was dizzy this AM when he got up, but no worse than at home the past two weeks. He has not been dizzy since then today.No other c/o. Objective Active Medications: Aspirin (Aspirin Ec Low Dose*) 81 mg PO DAILY [facility] Last Admin: 04/28/17 08:25 Dose: 81 mg Atorvastatin Calcium (Lipitor*) 10 mg PO DAILY [facility] Last Admin: 04/28/17 08:25 Dose: 10 mg Enoxaparin Sodium (Lovenox(*)) 90 mg SUBCUT Q12H [facility] Stop: 04/29/17 12:00 Last Admin: 04/28/17 08:32 Dose: 90 mg Potassium Chloride/Sodium Chloride (Ns 0.9% W/ 20 Meq Kcl 1000 Ml*) 1,000 mls @ 125 mls/hr IV PER RATE [facility] Stop: 04/30/17 11:00 Metoprolol Succinate (Toprol Xl Tab*) 12.5 mg PO ONCE ONE Stop: 04/28/17 12:51 Metoprolol Succinate (Toprol Xl Tab*) 25 mg PO BID [facility] Potassium Chloride (Klor-Con Liquid*) 40 meq PO DAILY [facility] Last Admin: 04/28/17 08:26 Dose: 40 meq Vital Signs 04/27/17 04/27/17 04/27/17 14:13 20:00 20:03 Temperature 98.8 F Pulse Rate 61 59 Respiratory 18 20 20 Rate Blood Pressure 115/75 112/63 (mmHg) O2 Sat by Pulse 100 98 Oximetry 04/27/17 04/27/17 04/28/17 20:26 23:21 03:32 Temperature 98.1 F 97.8 F Pulse Rate 60 60 59 Respiratory 20 18 Rate Blood Pressure 119/58 136/70 126/73 (mmHg) O2 Sat by Pulse 100 97 Oximetry Oxygen Devices in Use Now: None Appearance: Alert, partly up in bed. In good spirits. Looks comfortable. Eyes: No Scleral Icterus Neck: NL Appearance and Movements; NL JVP, No Thyroid Enlargement, Masses Respiratory: Symmetrical Chest Expansion and Respiratory Effort, Clear to Auscultation, Clear to Percussion Cardiovascular: NL Sounds; No Murmurs; No JVD, RRR, No Edema, - Extremities: No Edema, No Clubbing, Cyanosis, - Skin: No Rash or Ulcers, No Nodules or Sclerosis, - Neurological: Alert and Oriented x 3, NL Sensation Result Diagrams: 04/27/17 05:25 04/27/17 05:25 Additional Lab and Data: Lab Results 04/26/17 04/26/17 04/26/17 Range/Units 12:18 12:18 12:18 WBC (3.5-10.8) 10^3/ul RBC (4.0-5.4) 10^6/ul Hgb (14.0-18.0) g/dl Hct (42-52) % MCV (80-94) fL MCH (27-31) pg MCHC (31-36) g/dl RDW (10.5-15) % Plt Count (150-450) 10^3/ul MPV (7.4-10.4) um3 Neut % (Auto) (38-83) % Lymph % (Auto) (25-47) % [place] % (Auto) (1-9) % Eos % (Auto) (0-6) % Baso % (Auto) (0-2) % Absolute Neuts (auto) (1.5-7.7) 10^3/ul Absolute Lymphs (auto) (1.0-4.8) 10^3/ul Absolute Monos (auto) (0-0.8) 10^3/ul Absolute Eos (auto) (0-0.6) 10^3/ul Absolute Basos (auto) (0-0.2) 10^3/ul Absolute Nucleated RBC 10^3/ul Nucleated RBC % INR (Anticoag Therapy) 1.33 H (0.89-1.11) APTT 57.1 H (26.0-36.3) seconds D-Dimer, Quantitative 289 H (Less Than 230) ng/mL Sodium 138 (133-145) mmol/L Potassium 4.1 (3.5-5.0) mmol/L Chloride 106 (101-111) mmol/L Carbon Dioxide 26 (22-32) mmol/L Anion Gap 6 (2-11) mmol/L BUN 16 (6-24) mg/dL Creatinine 0.93 (0.67-1.17) mg/dL Est GFR ( Amer) 101.3 (>60) Est GFR (Non-Af Amer) 78.8 (>60) BUN/Creatinine Ratio 17.2 (8-20) Glucose 89 (70-100) mg/dL Lactic Acid (0.5-2.0) mmol/L Calcium 8.9 (8.6-10.3) mg/dL Magnesium 2.2 (1.9-2.7) mg/dL Total Bilirubin 0.90 (0.2-1.0) mg/dL AST 20 (13-39) U/L ALT 16 (7-52) U/L Alkaline Phosphatase 72 (34-104) U/L Total Creatine Kinase 109 (10-223) U/L CK-MB (CK-2) 2.4 (0.6-6.3) ng/mL Troponin I 0.01 (<0.04) ng/mL C-Reactive Protein 3.68 (< 5.00) mg/L B-Natriuretic Peptide 76 ( - 100) pg/mL Total Protein 6.4 (6.4-8.9) g/dL Albumin 3.9 (3.2-5.2) g/dL Globulin 2.5 (2-4) g/dL Albumin/Globulin Ratio 1.6 (1-3) Triglycerides 69 mg/dL Cholesterol 102 mg/dL LDL Cholesterol 49 mg/dL HDL Cholesterol 38.9 mg/dL Lipase < 10 L (11.0-82.0) U/L TSH 1.43 (0.34-5.60) mcIU/mL Urine Color Urine Appearance Urine pH (5-9) Ur Specific [place] (1.010-1.030) Urine Protein (Negative) Urine Ketones (Negative) Urine Blood (Negative) Urine Nitrate (Negative) Urine Bilirubin (Negative) Urine Urobilinogen (Negative) Ur Leukocyte Esterase (Negative) Urine Glucose (Negative) 04/26/17 04/26/17 04/26/17 Range/Units 12:18 12:18 13:17 WBC 7.5 (3.5-10.8) 10^3/ul RBC 4.14 (4.0-5.4) 10^6/ul Hgb 13.5 L (14.0-18.0) g/dl Hct 40 L (42-52) % MCV 96 H (80-94) fL MCH 33 H (27-31) pg MCHC 34 (31-36) g/dl RDW 14 (10.5-15) % Plt Count 167 (150-450) 10^3/ul MPV 8 (7.4-10.4) um3 Neut % (Auto) 72.1 (38-83) % Lymph % (Auto) 15.3 L (25-47) % Rolette % (Auto) 10.8 H (1-9) % Eos % (Auto) 1.2 (0-6) % Baso % (Auto) 0.6 (0-2) % Absolute Neuts (auto) 5.4 (1.5-7.7) 10^3/ul Absolute Lymphs (auto) 1.1 (1.0-4.8) 10^3/ul Absolute Monos (auto) 0.8 (0-0.8) 10^3/ul Absolute Eos (auto) 0.1 (0-0.6) 10^3/ul Absolute Basos (auto) 0 (0-0.2) 10^3/ul Absolute Nucleated RBC 0 10^3/ul Nucleated RBC % 0 INR (Anticoag Therapy) (0.89-1.11) APTT (26.0-36.3) seconds D-Dimer, Quantitative (Less Than 230) ng/mL Sodium (133-145) mmol/L Potassium (3.5-5.0) mmol/L Chloride (101-111) mmol/L Carbon Dioxide (22-32) mmol/L Anion Gap (2-11) mmol/L BUN (6-24) mg/dL Creatinine (0.67-1.17) mg/dL Est GFR ( Amer) (>60) Est GFR (Non-Af Amer) (>60) BUN/Creatinine Ratio (8-20) Glucose (70-100) mg/dL Lactic Acid 1.2 (0.5-2.0) mmol/L Calcium (8.6-10.3) mg/dL Magnesium (1.9-2.7) mg/dL Total Bilirubin (0.2-1.0) mg/dL AST (13-39) U/L ALT (7-52) U/L Alkaline Phosphatase (34-104) U/L Total Creatine Kinase (10-223) U/L CK-MB (CK-2) (0.6-6.3) ng/mL Troponin I (<0.04) ng/mL C-Reactive Protein (< 5.00) mg/L B-Natriuretic Peptide ( - 100) pg/mL Total Protein (6.4-8.9) g/dL Albumin (3.2-5.2) g/dL Globulin (2-4) g/dL Albumin/Globulin Ratio (1-3) Triglycerides mg/dL Cholesterol mg/dL LDL Cholesterol mg/dL HDL Cholesterol mg/dL Lipase (11.0-82.0) U/L TSH (0.34-5.60) mcIU/mL Urine Color Yellow Urine Appearance Clear Urine pH 7.0 (5-9) Ur Specific [place] 1.006 L (1.010-1.030) Urine Protein Negative (Negative) Urine Ketones Negative (Negative) Urine Blood Negative (Negative) Urine Nitrate Negative (Negative) Urine Bilirubin Negative (Negative) Urine Urobilinogen Negative (Negative) Ur Leukocyte Esterase Negative (Negative) Urine Glucose Negative (Negative) 04/26/17 Range/Units 15:10 WBC (3.5-10.8) 10^3/ul RBC (4.0-5.4) 10^6/ul Hgb (14.0-18.0) g/dl Hct (42-52) % MCV (80-94) fL MCH (27-31) pg MCHC (31-36) g/dl RDW (10.5-15) % Plt Count (150-450) 10^3/ul MPV (7.4-10.4) um3 Neut % (Auto) (38-83) % Lymph % (Auto) (25-47) % [place] % (Auto) (1-9) % Eos % (Auto) (0-6) % Baso % (Auto) (0-2) % Absolute Neuts (auto) (1.5-7.7) 10^3/ul Absolute Lymphs (auto) (1.0-4.8) 10^3/ul Absolute Monos (auto) (0-0.8) 10^3/ul Absolute Eos (auto) (0-0.6) 10^3/ul Absolute Basos (auto) (0-0.2) 10^3/ul Absolute Nucleated RBC 10^3/ul Nucleated RBC % INR (Anticoag Therapy) (0.89-1.11) APTT (26.0-36.3) seconds D-Dimer, Quantitative (Less Than 230) ng/mL Sodium (133-145) mmol/L Potassium (3.5-5.0) mmol/L Chloride (101-111) mmol/L Carbon Dioxide (22-32) mmol/L Anion Gap (2-11) mmol/L BUN (6-24) mg/dL Creatinine (0.67-1.17) mg/dL Est GFR ( Amer) (>60) Est GFR (Non-Af Amer) (>60) BUN/Creatinine Ratio (8-20) Glucose (70-100) mg/dL Lactic Acid (0.5-2.0) mmol/L Calcium (8.6-10.3) mg/dL Magnesium (1.9-2.7) mg/dL Total Bilirubin (0.2-1.0) mg/dL AST (13-39) U/L ALT (7-52) U/L Alkaline Phosphatase (34-104) U/L Total Creatine Kinase (10-223) U/L CK-MB (CK-2) (0.6-6.3) ng/mL Troponin I 0.01 (<0.04) ng/mL C-Reactive Protein (< 5.00) mg/L B-Natriuretic Peptide ( - 100) pg/mL Total Protein (6.4-8.9) g/dL Albumin (3.2-5.2) g/dL Globulin (2-4) g/dL Albumin/Globulin Ratio (1-3) Triglycerides mg/dL Cholesterol mg/dL LDL Cholesterol mg/dL HDL Cholesterol mg/dL Lipase (11.0-82.0) U/L TSH (0.34-5.60) mcIU/mL Urine Color Urine Appearance Urine pH (5-9) Ur Specific [place] (1.010-1.030) Urine Protein (Negative) Urine Ketones (Negative) Urine Blood (Negative) Urine Nitrate (Negative) Urine Bilirubin (Negative) Urine Urobilinogen (Negative) Ur Leukocyte Esterase (Negative) Urine Glucose (Negative) Assess/Plan/Problems-Billing Assessment: - Patient Problems (1) CAD (coronary artery disease) Current Visit: Yes Status: Acute Code(s): I25.10 - ATHSCL HEART DISEASE OF [place] CORONARY ARTERY W/O ANG PCTRS SNOMED Code(s): 04371526 Comment: V-tach noted on pacer interrogation, many arrhythmias during stress test. Cardiac cath planned for 04/30. Continue ASA, statin, BB, KCL. According to tamy, metoprolol did not affect his sx's of dizziness. Re- institute full dose of metoprolol XL 25 mg bid 04/28. (2) Atrial fibrillation Current Visit: Yes Status: Acute Code(s): I48.91 - UNSPECIFIED ATRIAL FIBRILLATION SNOMED Code(s): 99287111 Comment: Bridge with enoxaparin. Last dose dabigatran 04/27 AM.
[2017-04-28] MEDS: NS 0.9% w/ 20 Meq KCL 1000 ML* 1,000 ML IV SCH ×2 (13:32→22:50)
--- NOTE | 2017-04-28 15:21 | CONS ---
CC: Dr. Jose Alfredo Tsang. ADDENDUM: CARDIOLOGY CONSULTATION: DATE OF CONSULT: 04/27/17 This is an update, the patient was seen yesterday, but his records were not available; now the records from some of his [place] [facility] are available. Of note, he had a pacemaker implanted at [facility] between 05/20 and 05/24. At that time, he had a long history of first-degree AV block and episodes of Mobitz I second-degree AV block. Previously he had a Holter that revealed Mobitz type II second-degree AV block. It was thought that some of his symptoms were possibly related to the second-degree AV block, with lightheadedness, and a pacemaker was implanted. 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 He had a Medtronic [id number] generator, which is an Advisa, and Medtronic 5076 58 cm RV lead, and Medtronic 5076 52 mm RA lead. In addition, he had an echocardiogram performed on 05/22/16, which revealed normal LV function, EF of 55% to 60% with mild LVH, trivial AI, mild MR, PA pressure was 30. He also had a cath report from 10/15/13, during which he had percutaneous intervention for a 90% stenosis in the mid right posterior descending, he had a 2.25 x 15 Xience Xpedition stent placed. His coronary arteries revealed a right dominant circulation. Left main had a mild 50% lesion. The LAD had a distal 90% lesion. The LAD had a mid 70% stenosis. The first diagonal had a 100% ostial stenosis. The left circumflex had a proximal 95% lesion. The OM1 had 100% stenosis. The right coronary mid lesion of 100%. The right posterior descending mid vessel lesion was 90% stenosis, that was the culprit lesion that received intervention. The coronary grafts include a OLIVA to the proximal first diagonal , patent. Saphenous vein graft to the proximal right posterior descending from the aorta was present. Saphenous vein graft to the mid OM1 from the aorta was present. Sequential saphenous vein graft to the distal left circumflex, continuing from the graft to the first OM branch was present. Sequential OLIVA graft to the mid LAD, continuing from the graft to the first diagonal present. EF was estimated at 55%, by visual assessment. [id number]/[facility] #: [id number] JAMIL
[2017-04-28] MEDS: Metoprolol Succinate XL TAB* 25 MG PO SCH (20:36)
[2017-04-29 06:09] LABS: Hematocrit 42 % (42-52); Mean Corpuscular HGB Conc 34 g/dl (31-36); Mean Corpuscular Hemoglobin 33 pg (27-31); Mean Corpuscular Volume 97 fL (80-94); Mean Platelet Volume 8 um3 (7.4-10.4); Red Blood Count 4.31 10^6/ul (4.0-5.4); Red Cell Distribution Width 14 % (10.5-15)
[2017-04-29 06:26] LABS: BUN/Creatinine Ratio 12.5 (8-20); Calcium 8.8 mg/dL (8.6-10.3); EGFR African American 120.6 (>60); EGFR Non-African American 93.7 (>60); Potassium 4.1 mmol/L (3.5-5.0)
--- NOTE | 2017-04-29 09:03 | PN ---
Subjective Date of Service: 04/29/17 Interval History: Dizzy spell this AM when he got up to go to the BR. After using the BR he laid down in bed. The dizzy spell lasted about an hour, longer than his usual dizzy spells. Objective Active Medications: Aspirin (Aspirin Ec Low Dose*) 81 mg PO DAILY [facility] Last Admin: 04/28/17 08:25 Dose: 81 mg Atorvastatin Calcium (Lipitor*) 10 mg PO DAILY [facility] Last Admin: 04/28/17 08:25 Dose: 10 mg Enoxaparin Sodium (Lovenox(*)) 90 mg SUBCUT Q12H [facility] Stop: 04/29/17 12:00 Last Admin: 04/28/17 20:33 Dose: 90 mg Potassium Chloride/Sodium Chloride (Ns 0.9% W/ 20 Meq Kcl 1000 Ml*) 1,000 mls @ 125 mls/hr IV PER RATE [facility] Stop: 04/30/17 11:00 Last Admin: 04/28/17 22:50 Dose: 100 mls/hr Metoprolol Succinate (Toprol Xl Tab*) 25 mg PO BID [facility] Last Admin: 04/28/17 20:36 Dose: 25 mg Potassium Chloride (Klor-Con Liquid*) 40 meq PO DAILY [facility] Last Admin: 04/28/17 08:26 Dose: 40 meq Vital Signs 04/28/17 04/28/17 04/28/17 11:55 16:05 19:44 Temperature 97.3 F 97.5 F 97.8 F Pulse Rate 59 59 59 Respiratory 20 16 16 Rate Blood Pressure 136/82 132/78 126/68 (mmHg) O2 Sat by Pulse 100 99 99 Oximetry 04/28/17 04/28/17 04/28/17 20:00 20:30 23:36 Temperature 98.3 F Pulse Rate 60 60 Respiratory 16 18 Rate Blood Pressure 122/65 132/73 (mmHg) O2 Sat by Pulse 99 Oximetry 04/29/17 04:24 Temperature 97.8 F Pulse Rate 59 Respiratory 18 Rate Blood Pressure 129/72 (mmHg) O2 Sat by Pulse 96 Oximetry Oxygen Devices in Use Now: None Appearance: Alert, partly up in bed. In good spirits. Looks comfortable. Respiratory: Symmetrical Chest Expansion and Respiratory Effort, Clear to Auscultation, Clear to Percussion Cardiovascular: NL Sounds; No Murmurs; No JVD, RRR, No Edema, - Extremities: No Edema, No Clubbing, Cyanosis, - Skin: No Rash or Ulcers, No Nodules or Sclerosis, - Neurological: Alert and Oriented x 3, NL Sensation Result Diagrams: 04/29/17 05:51 04/29/17 05:51 Additional Lab and Data: Lab Results 04/26/17 04/26/17 04/26/17 Range/Units 12:18 12:18 12:18 WBC (3.5-10.8) 10^3/ul RBC (4.0-5.4) 10^6/ul Hgb (14.0-18.0) g/dl Hct (42-52) % MCV (80-94) fL MCH (27-31) pg MCHC (31-36) g/dl RDW (10.5-15) % Plt Count (150-450) 10^3/ul MPV (7.4-10.4) um3 Neut % (Auto) (38-83) % Lymph % (Auto) (25-47) % Lamar % (Auto) (1-9) % Eos % (Auto) (0-6) % Baso % (Auto) (0-2) % Absolute Neuts (auto) (1.5-7.7) 10^3/ul Absolute Lymphs (auto) (1.0-4.8) 10^3/ul Absolute Monos (auto) (0-0.8) 10^3/ul Absolute Eos (auto) (0-0.6) 10^3/ul Absolute Basos (auto) (0-0.2) 10^3/ul Absolute Nucleated RBC 10^3/ul Nucleated RBC % INR (Anticoag Therapy) 1.33 H (0.89-1.11) APTT 57.1 H (26.0-36.3) seconds D-Dimer, Quantitative 289 H (Less Than 230) ng/mL Sodium 138 (133-145) mmol/L Potassium 4.1 (3.5-5.0) mmol/L Chloride 106 (101-111) mmol/L Carbon Dioxide 26 (22-32) mmol/L Anion Gap 6 (2-11) mmol/L BUN 16 (6-24) mg/dL Creatinine 0.93 (0.67-1.17) mg/dL Est GFR ( Amer) 101.3 (>60) Est GFR (Non-Af Amer) 78.8 (>60) BUN/Creatinine Ratio 17.2 (8-20) Glucose 89 (70-100) mg/dL Lactic Acid (0.5-2.0) mmol/L Calcium 8.9 (8.6-10.3) mg/dL Magnesium 2.2 (1.9-2.7) mg/dL Total Bilirubin 0.90 (0.2-1.0) mg/dL AST 20 (13-39) U/L ALT 16 (7-52) U/L Alkaline Phosphatase 72 (34-104) U/L Total Creatine Kinase 109 (10-223) U/L CK-MB (CK-2) 2.4 (0.6-6.3) ng/mL Troponin I 0.01 (<0.04) ng/mL C-Reactive Protein 3.68 (< 5.00) mg/L B-Natriuretic Peptide 76 ( - 100) pg/mL Total Protein 6.4 (6.4-8.9) g/dL Albumin 3.9 (3.2-5.2) g/dL Globulin 2.5 (2-4) g/dL Albumin/Globulin Ratio 1.6 (1-3) Triglycerides 69 mg/dL Cholesterol 102 mg/dL LDL Cholesterol 49 mg/dL HDL Cholesterol 38.9 mg/dL Lipase < 10 L (11.0-82.0) U/L TSH 1.43 (0.34-5.60) mcIU/mL Urine Color Urine Appearance Urine pH (5-9) Ur Specific [place] (1.010-1.030) Urine Protein (Negative) Urine Ketones (Negative) Urine Blood (Negative) Urine Nitrate (Negative) Urine Bilirubin (Negative) Urine Urobilinogen (Negative) Ur Leukocyte Esterase (Negative) Urine Glucose (Negative) 04/26/17 04/26/17 04/26/17 Range/Units 12:18 12:18 13:17 WBC 7.5 (3.5-10.8) 10^3/ul RBC 4.14 (4.0-5.4) 10^6/ul Hgb 13.5 L (14.0-18.0) g/dl Hct 40 L (42-52) % MCV 96 H (80-94) fL MCH 33 H (27-31) pg MCHC 34 (31-36) g/dl RDW 14 (10.5-15) % Plt Count 167 (150-450) 10^3/ul MPV 8 (7.4-10.4) um3 Neut % (Auto) 72.1 (38-83) % Lymph % (Auto) 15.3 L (25-47) % Lamar % (Auto) 10.8 H (1-9) % Eos % (Auto) 1.2 (0-6) % Baso % (Auto) 0.6 (0-2) % Absolute Neuts (auto) 5.4 (1.5-7.7) 10^3/ul Absolute Lymphs (auto) 1.1 (1.0-4.8) 10^3/ul Absolute Monos (auto) 0.8 (0-0.8) 10^3/ul Absolute Eos (auto) 0.1 (0-0.6) 10^3/ul Absolute Basos (auto) 0 (0-0.2) 10^3/ul Absolute Nucleated RBC 0 10^3/ul Nucleated RBC % 0 INR (Anticoag Therapy) (0.89-1.11) APTT (26.0-36.3) seconds D-Dimer, Quantitative (Less Than 230) ng/mL Sodium (133-145) mmol/L Potassium (3.5-5.0) mmol/L Chloride (101-111) mmol/L Carbon Dioxide (22-32) mmol/L Anion Gap (2-11) mmol/L BUN (6-24) mg/dL Creatinine (0.67-1.17) mg/dL Est GFR ( Amer) (>60) Est GFR (Non-Af Amer) (>60) BUN/Creatinine Ratio (8-20) Glucose (70-100) mg/dL Lactic Acid 1.2 (0.5-2.0) mmol/L Calcium (8.6-10.3) mg/dL Magnesium (1.9-2.7) mg/dL Total Bilirubin (0.2-1.0) mg/dL AST (13-39) U/L ALT (7-52) U/L Alkaline Phosphatase (34-104) U/L Total Creatine Kinase (10-223) U/L CK-MB (CK-2) (0.6-6.3) ng/mL Troponin I (<0.04) ng/mL C-Reactive Protein (< 5.00) mg/L B-Natriuretic Peptide ( - 100) pg/mL Total Protein (6.4-8.9) g/dL Albumin (3.2-5.2) g/dL Globulin (2-4) g/dL Albumin/Globulin Ratio (1-3) Triglycerides mg/dL Cholesterol mg/dL LDL Cholesterol mg/dL HDL Cholesterol mg/dL Lipase (11.0-82.0) U/L TSH (0.34-5.60) mcIU/mL Urine Color Yellow Urine Appearance Clear Urine pH 7.0 (5-9) Ur Specific [place] 1.006 L (1.010-1.030) Urine Protein Negative (Negative) Urine Ketones Negative (Negative) Urine Blood Negative (Negative) Urine Nitrate Negative (Negative) Urine Bilirubin Negative (Negative) Urine Urobilinogen Negative (Negative) Ur Leukocyte Esterase Negative (Negative) Urine Glucose Negative (Negative) 04/26/17 Range/Units 15:10 WBC (3.5-10.8) 10^3/ul RBC (4.0-5.4) 10^6/ul Hgb (14.0-18.0) g/dl Hct (42-52) % MCV (80-94) fL MCH (27-31) pg MCHC (31-36) g/dl RDW (10.5-15) % Plt Count (150-450) 10^3/ul MPV (7.4-10.4) um3 Neut % (Auto) (38-83) % Lymph % (Auto) (25-47) % Lamar % (Auto) (1-9) % Eos % (Auto) (0-6) % Baso % (Auto) (0-2) % Absolute Neuts (auto) (1.5-7.7) 10^3/ul Absolute Lymphs (auto) (1.0-4.8) 10^3/ul Absolute Monos (auto) (0-0.8) 10^3/ul Absolute Eos (auto) (0-0.6) 10^3/ul Absolute Basos (auto) (0-0.2) 10^3/ul Absolute Nucleated RBC 10^3/ul Nucleated RBC % INR (Anticoag Therapy) (0.89-1.11) APTT (26.0-36.3) seconds D-Dimer, Quantitative (Less Than 230) ng/mL Sodium (133-145) mmol/L Potassium (3.5-5.0) mmol/L Chloride (101-111) mmol/L Carbon Dioxide (22-32) mmol/L Anion Gap (2-11) mmol/L BUN (6-24) mg/dL Creatinine (0.67-1.17) mg/dL Est GFR ( Amer) (>60) Est GFR (Non-Af Amer) (>60) BUN/Creatinine Ratio (8-20) Glucose (70-100) mg/dL Lactic Acid (0.5-2.0) mmol/L Calcium (8.6-10.3) mg/dL Magnesium (1.9-2.7) mg/dL Total Bilirubin (0.2-1.0) mg/dL AST (13-39) U/L ALT (7-52) U/L Alkaline Phosphatase (34-104) U/L Total Creatine Kinase (10-223) U/L CK-MB (CK-2) (0.6-6.3) ng/mL Troponin I 0.01 (<0.04) ng/mL C-Reactive Protein (< 5.00) mg/L B-Natriuretic Peptide ( - 100) pg/mL Total Protein (6.4-8.9) g/dL Albumin (3.2-5.2) g/dL Globulin (2-4) g/dL Albumin/Globulin Ratio (1-3) Triglycerides mg/dL Cholesterol mg/dL LDL Cholesterol mg/dL HDL Cholesterol mg/dL Lipase (11.0-82.0) U/L TSH (0.34-5.60) mcIU/mL Urine Color Urine Appearance Urine pH (5-9) Ur Specific [place] (1.010-1.030) Urine Protein (Negative) Urine Ketones (Negative) Urine Blood (Negative) Urine Nitrate (Negative) Urine Bilirubin (Negative) Urine Urobilinogen (Negative) Ur Leukocyte Esterase (Negative) Urine Glucose (Negative) Assess/Plan/Problems-Billing Assessment: - Patient Problems (1) CAD (coronary artery disease) Current Visit: Yes Status: Acute Code(s): I25.10 - ATHSCL HEART DISEASE OF [place] CORONARY ARTERY W/O ANG PCTRS SNOMED Code(s): 87967150 Comment: V-tach noted on pacer interrogation, many arrhythmias and ST depression during stress test. Mod nile-infarct ischemia on nuclear images. Cardiac cath planned for 04/30. Continue ASA, statin, BB, KCL. According to patient, metoprolol did not affect his sx's of dizziness. Re- institute full dose of metoprolol XL 25 mg bid 04/28. (2) Atrial fibrillation Current Visit: Yes Status: Acute Code(s): I48.91 - UNSPECIFIED ATRIAL FIBRILLATION SNOMED Code(s): 64646085 Comment: Bridge with enoxaparin. Last dose dabigatran 04/27 AM.
[2017-04-29] MEDS: NS 0.9% w/ 20 Meq KCL 1000 ML* 1,000 ML IV SCH ×2 (09:24→20:08)
[2017-04-29] MEDS: Potassium Chloride LIQUID* 20 MEQ PACKET PO SCH (10:16)
[2017-04-29] MEDS: Aspirin EC Low Dose* 81 MG TAB.EC PO SCH (10:18)
[2017-04-29] MEDS: Atorvastatin* 10 MG TAB PO SCH (10:18)
[2017-04-29] MEDS: Metoprolol Succinate XL TAB* 25 MG PO SCH ×2 (10:18→21:50)
[2017-04-29] MEDS: Enoxaparin(*) 100 MG/ML SYR SUBCUT SCH (10:20)
--- NOTE | 2017-04-29 14:06 | RAD ---
INDICATION: Vertigo. COMPARISON: No relevant prior exams available on the [facility] PACS for comparison. TECHNIQUE: Bilateral carotid duplex scan. Stenosis estimations reflect velocity criteria that have been correlated to angiographic stenosis calculations based on distal internal carotid diameter. REPORT: RIGHT ICA: 45 cm/s peak systolic 10 cm/s end diastolic CCA: 72 cm/s peak systolic ICA/CCA peak systolic ratio: 0.62 Minimal calcific plaque at the RIGHT carotid bulb. Preserved low resistance RIGHT internal carotid artery waveforms. Antegrade flow documented at the RIGHT vertebral artery. LEFT ICA: 53 cm/s peak systolic 12 cm/s end diastolic CCA: 75 cm/s peak systolic ICA/CCA peak systolic ratio: 0.70 The left common carotid artery and internal carotid artery are without evidence for significant atherosclerotic disease. Normal spectral wave forms are present throughout. Antegrade flow in the left vertebral artery. IMPRESSION: Minimal calcific plaque at the RIGHT carotid bulb. Negative for hemodynamic significant carotid stenosis. CPT II Codes: 3100F
[2017-04-30] MEDS: NS 0.9% w/ 20 Meq KCL 1000 ML* 1,000 ML IV SCH (05:21)
[2017-04-30] MEDS ORDERED: Influenza VAC *QUAD* 2017-18* 0.5 ML SYRINGE IM ONE (09:00)
[2017-04-30] MEDS ORDERED: Metoprolol Succinate XL TAB* 25 MG PO SCH (09:00)
[2017-04-30] MEDS: Atorvastatin* 10 MG TAB PO SCH (09:10)
[2017-04-30] MEDS: Metoprolol Succinate XL TAB* 25 MG PO SCH (09:10)
[2017-04-30] MEDS: Aspirin EC Low Dose* 81 MG TAB.EC PO SCH (09:10)
[2017-04-30] MEDS: Potassium Chloride LIQUID* 20 MEQ PACKET PO SCH (09:10)
[2017-04-30] MEDS ORDERED: fentaNYL* 50 MCG/ML 2 ML VIAL (100 MCG VIAL) ONE (09:16)
[2017-04-30] MEDS ORDERED: Heparin(*) 1000 UNIT/ML 10 ML VIAL CATH LAB IV ONE (09:16)
[2017-04-30] MEDS ORDERED: VERAPAMIL 2.5 MG/ML 4 ML VIAL ONE (09:16)
[2017-04-30] MEDS ORDERED: Midazolam* 1 MG/ML 5 ML VIAL (5 MG) ONE (09:16)
[2017-04-30] MEDS ORDERED: nitroGLYCERIN DRIP* 250 ML ONE ×2 (09:17→12:01)
[2017-04-30] MEDS ORDERED: Heparin 2 UNITS/ML IVPREMIX* 2,000 ML IV ONE (09:17)
[2017-04-30] MEDS ORDERED: Lidocaine 1% INJ* 10 MG/ML 30 ML SDV ONE (09:17)
[2017-04-30] MEDS ORDERED: Iohexol 350 (CONTRAST) 200 ML MDV IV ONE (09:17)
[2017-04-30] MEDS ORDERED: Adenosine* 3 MG/ML VIAL ONE (12:01)
--- NOTE | 2017-04-30 12:31 | CONS ---
CONSULT NOTE: DATE OF CONSULT: 04/30/17 PRIMARY PNEUMATIC TOOL OPERATOR: Dr. Bboby Vaca at [facility]. 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 Cardiology was consulted because of epis odes of nonsustained VT. Interventional Cardiology is consulted because of an abnormal myocardial p erfusion scan and decreased exercise tolerance. 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 His last cath w as at [facility] on 10/15/2013. According to report, he had 50% left main stenosis, proximal LAD stenosis 70%, with distal 90% stenosis, the first diagonal was occluded. His RCA was occluded, the circumflex had 95% stenosis. The first marginal was occluded. Graft angiography reported a patent OLIVA sequential to diagonal and LAD which was patent, vein graft to proximal RPDA was apparently pat ent, the sequential vein graft to the first marginal and distal circumflex was patent. His RPDA had a 90% stenosis, presumably distal to the vein graft insertion. The RPDA was stented with a 2.25 x 15 Xience drug-eluting stent. Even though his OLIVA was patent, the proximal LAD was stented with a 3.5 Xience, the mid LAD with 3 x 23 Xience, and then the apical LAD with 2.25 x 12 Xience stent. LV EF then was normal at 55%. In 2014, he had a Lexiscan in [place] which reported mild attenuation in the lateral wall. He had normal LV function. Echo in 2016 in [place] was normal. Last year, he had implantation of a permanent pacemaker apparently for dizziness, which has persisted. He was admitt ed here on 04/27/17 with dizziness. He has a nonsustained VT recorded on his pacemaker, therefore w as seen by Dr. Tsang, underwent an exercise stress test, which showed limited exercise tolerance to only 3 minutes, which is very unusual for him in that he is normally very active. He had no angina , he did have bursts of non-sustained VT, by report the scan showed normal LV function with an anter olateral moderate mixed defect, with transient ischemic dilatation at 1.18. He was converted from Pr adaxa to short-acting anticoagulation over the weekend, Interventional Cardiology was consulted. He has remained stable in the hospital. Heparin was discontinued this morning. PAST MEDICAL HISTORY: See the H and P. SOCIAL HISTORY: He is a nonsmoker. He is . FAMILY HISTORY: Noncontributory. ALLERGIES: None. REVIEW OF SYSTEMS: He had no issues with dual antiplatelet therapy after his stent placement in 201 4, subsequently he has been converted to Pradaxa and aspirin. EMERGENCY MANAGEMENT DIRECTOR: No history of TIA or CVA. GI: No GI bleeding. Heme: No history of malignancy or anemia. Secretory: He denies claudication. Re mainder are all negative. PREHOSPITAL MEDICATIONS: 1. Pradaxa. 2. Aspirin 81 mg daily. 2. Zocor 20 mg daily. PHYSICAL EXAMINATION: He is articulate, BP 136/80, heart rate in the 60s, his lungs are clear, card iac exam is unremarkable. His radial pulses are normal, he has normal femoral pulses, normal poplit eal pulses. The left posterior tibial is palpable. The right posterior tibial is very difficult to palpate if at all present. He does not have dorsalis pedis pulses. He has no ischemic changes in his feet. LABORATORY DATA/IMAGING STUDIES: Hemoglobin, platelet count, chemistry panel are all normal. His L DL is 49. EKG shows sinus rhythm with long W[place], without ST-T wave changes. IMPRESSION: 1. Abnormal myocardial perfusion scan. His symptoms are primarily dizziness, not like his pre-bypass ischemic pain, which was in his back, between his shoulder blades. He has an early positive nuclear stress test at only 3 minutes of exercise with a partially reversible lateral defec t. This may correspond to stenosis in the vein graft to his circumflex system. We discussed bryant ry angiography, possible intervention, procedural risks. He has no questions. He is willing to pro ceed. 2. Peripheral arterial disease. He has asymptomatic diminished ankle pulses, has never had ABIs. He is already on aspirin and a statin. Thank you for the consultation. [id number]/[facility] #: [id number]
[2017-04-30] MEDS ORDERED: NS 0.9% 1000 ML* 1,000 ML IV SCH (13:00)
--- NOTE | 2017-04-30 16:04 | PN ---
Progress Note - Progress Note Date of Service: 04/30/17 Note: Time spent on discharge 40 minutes.
[2017-04-30 16:26] VITALS: BP 162/87
--- NOTE | 2017-05-01 01:03 | DS ---
DISCHARGE SUMMARY: DATE OF ADMISSION: 04/27/17 DATE OF DISCHARGE: 04/30/17 HOSPITAL COURSE: This 77-year-old man presented with dizziness. His history and physical exam are detailed in the dictated admission note. The patient was admitted to telemetry unit. He had 3 troponins all of which were within normal limits. He occasionally had dizzy spells. He underwent nuclear medicine stress test. This was looked by treadmill. He had ST depression and lot of ectopy on the treadmill. He got short of breath. He underwent cardiac catheterization. He was completely revascularized. We are not sure how to explain his symptoms. He was started on a low-dose beta - jacky while he was here. His dabigatran was easily interrupted. He had received some Lovenox to help bridge him. He will resume his dabigatran on the evening of discharge. FINAL DIAGNOSES: 1. Coronary artery disease. 2. History of atrial fibrillation, status post ablation. DISCHARGE MEDICATIONS: 1. Metoprolol succinate 12.5 mg b.i.d. 2. Dabigatran 150 mg b.i.d. 3. Aspirin 81 mg daily. 4. Simvastatin 20 mg daily. [id number]/[facility] #: [id number] MTDD
--- NOTE | 2017-05-01 15:47 | CATH ---
CATH REPORT: DATE OF PROCEDURE: 04/30/17 - ROOM #[id number] PRIMARY CENTRAL OFFICE WORKER: Dr. Bobby Vaca at [facility]. PROCEDURES: Right common femoral artery access, Angio-Seal right common femoral artery, bilateral selective coronary cineangiography, OLIVA angiography, saphenous vein graft angiography x2, left heart catheterization, left ventriculography. HISTORY: A 77-year-old male with prior bypass grafting in 2000 after infarct with sequential OLIVA to diagonal and LAD, sequential vein graft to OM1 and distal circumflex, and vein graft to proximal RPDA. By report, cath in 2013 showed the grafts to be patent, left main had 50% stenosis, LAD had proximal 70 % stenosis and distal 90% stenosis, occlusion of the bypassed diagonal and occlusion of the RCA. The RPDA had a 90% stenosis, which was stented with a 2.25 x 15 drug eluting stent, even though the OLIVA was patent. The LAD was stented proximally with a 3.5 drug eluting stent, mid with a 3 x 23, and the apical LAD with a 2.25 x 12 drug eluting stent. He was admitted because of exertional dyspnea, nonsustained VT. Stress imaging by Dr. Tsang showed limited exercise capacity and an inferolateral partially reversible defect, which was described in 2015. PROCEDURE ACCESS: Right common femoral artery sheath 6F. DIAGNOSTIC CATHETERS: 6F CHELA, 6FR4, 6FL4, 6FMP for the right coronary graft, 6FLCB for the circumflex graft, 6F pigtail. HEMODYNAMICS: LV 162/10-20, with approximately 5 mm gradient or less on pullback after equilibration of the aortic pressure tracing. ANGIOGRAPHY: Right common femoral artery, sheath entries in segment 2, there is no stenosis. OLIVA. The CHELA is relatively small, but widely patent, insert [id number] into a small diagonal which is graft dependent, there is no insertion stenosis. The OLIVA then continues and ends end to side on the mid LAD without insertion stenosis. It fills the LAD to the apex, as well as retrograde to an area of competitive flow. There are numerous proximal LAD stents. RCA. The RCA is large, dominant, has proximal 50% stenosis, is occluded after the acute margin. Saphenous vein graft circumflex. It arises from the left side of the aorta, has a patent [id number] anastomosis to a high small bifurcated marginal, which is graft dependent, ends end to side on a more distal bifurcated marginal without insertion stenosis, fills at antegrade, the retrograde portion has competitive flow. Vein graft RCA. It arises from the right side of the aorta. It is large, there is no insertion stenosis at the crux, the PDA has no angiographic stenosis , the RCA continuation is angulated, it appears to have possibly a 50% stenosis , although it is difficult to lay out because of overlap. This area was subsequently evaluated with FFR. Left main: The left main has an osteal 70% stenosis. LAD: The LAD is large, there is some mild intimal hyperplasia within the proximal stent. The LAD has no significant stenosis, the LAD fills the OLIVA retrograde. Circumflex: The circumflex is relatively small, the first marginal is occluded , filled by the vein graft, and circumflex then supplies a moderate second marginal, which fills the distal portion of the sequential vein graft retrograde. LV GRAM: LV systolic function is normal with normal wall motion, estimated LVEF is 55%. FFR of the RCA continuation was performed through the multipurpose catheter after 5000 units of heparin, 200 mcg of intraarterial nitroglycerin and with 2 boluses of 100 mcg of adenosine each. FFR values were 0.89, 0.89, not consistent with significant stenosis. CONCLUSION: 1. Three-vessel disease with complete revascularization, patent OLIVA to the diagonal and LAD, patent vein graft to RCA, patent sequential vein graft to OM1 and OM2. 2. Probable diastolic dysfunction with elevated LVDP with trivial aortic gradient on pullback. 3. Normal LV systolic function. 4. Successful Angio-Seal right common femoral artery. 5. He will be started on beta blockade for his nonsustained VT, will follow up with his finance specialist in [place]. His exertional dyspnea is likely due to a combination of deconditioning and diastolic dysfunction. [id number]/[facility] #: [id number] JAMIL
== END 2017-04-30 16:51 | disposition home or self-care (01) | DRG 287 ==
LOC: ED 11:50 → MEDTELE 17:46 → OBSVTOIN 04-27 13:14
PROVIDERS: ADMIT Hospitalist; ATTEND Internal Medicine
PROC: 4B02XSZ Measurement of Cardiac Pacemaker, External Approach (ICD-10-PCS; 2017-04-26)
PROC: B2111ZZ Fluoroscopy of Multiple Coronary Arteries using Low Osmolar Contrast (ICD-10-PCS; 2017-04-30)
PROC: B2151ZZ Fluoroscopy of Left Heart using Low Osmolar Contrast (ICD-10-PCS; 2017-04-30)
PROC: 4A023N7 Measurement of Cardiac Sampling and Pressure, Left Heart, Percutaneous Approach (ICD-10-PCS; 2017-04-30)
PROC: B2131ZZ Fluoroscopy of Multiple Coronary Artery Bypass Grafts using Low Osmolar Contrast (ICD-10-PCS; principal; 2017-04-30 10:30)
DX: I25.10 Atherosclerotic heart disease of native coronary artery without angina pectoris (principal); I47.2 Ventricular tachycardia; I48.92 Unspecified atrial flutter; E86.0 Dehydration; I48.0 Paroxysmal atrial fibrillation; N52.9 Male erectile dysfunction, unspecified; I44.0 Atrioventricular block, first degree; E78.00 Pure hypercholesterolemia, unspecified; Z79.01 Long term (current) use of anticoagulants; Z79.82 Long term (current) use of aspirin; I25.2 Old myocardial infarction; Z82.49 Family history of ischemic heart disease and other diseases of the circulatory system; Z95.1 Presence of aortocoronary bypass graft; Z95.0 Presence of cardiac pacemaker; Z90.49 Acquired absence of other specified parts of digestive tract; Z95.5 Presence of coronary angioplasty implant and graft
CPT/HCPCS: 36415; 71010; 71275; 78452; 80048; 80053; 80061; 81003; 82533; 82550; 82553; 83605; 83690; 83735; 83880; 84443; 84484; 85025; 85379; 85610; 85730; 86140; 90686; 93005; 93017; 93306; 93459; 93880; 99156; 99157; A9270-GY; A9502; C1760; C1887; G0378; J0153; J1644; J1650; J2001; J2250; J3010; Q9967